=== PATIENT | male | born 1950 | race African-American/Black ===

== ENCOUNTER 2025-05-05 06:58 | Emergency (ER) | payer OTHER ==
[~2025-05-05] VITALS: Ht 182.9 cm; Wt 88.0 kg
[2025-05-05 07:05] VITALS: O2SAT 98
[2025-05-05 08:19] LABS: HEMATOCRIT. 46.5 % (42.0-52.0); HEMOGLOBIN. 15.2 g/dL (14.0-18.0); MEAN PLATELET VOLUME 9.4 fl (7.4-10.4); PLATELET 401 x1000/uL (130-400); RED BLOOD CELL COUNT 4.51 mill/uL (4.7-6.1); RED CELL DISTRIBUTION WIDTH 13.4 % (11.6-14.6)
[2025-05-05 08:22] LABS: CREATININE 1.0 mg/dL (0.6-1.3); UREA NITROGEN BLOOD 12 mg/dL (9-23)
[2025-05-05 08:23] LABS: PROTEIN TOTAL 7.5 g/dL (6.0-8.3)
[2025-05-05 08:24] LABS: ASPARTATE AMINOTRANSFERASE 35 IU/L (<34); BILIRUBIN TOTAL 1.3 mg/dL (0.1-1.0)
[2025-05-05] MEDS: SODIUM CHLORIDE 0.9% 1,000 ML IV ONE ×2 (08:53→10:47)
[2025-05-05] MEDS: PIPERACILLIN/TAZO 3.375G/50ML 50 ML IV ONE (08:53)
[2025-05-05 09:24] LABS: INR 1.5
[2025-05-05 09:33] LABS: BAND% 6.0 % (1.0-6.0); LYMPHOCYTES % MANUAL 3.0 % (20.0-50.0); MONOCYTES % MANUAL 7.0 % (2.0-8.0); NEUTROPHILS % MANUAL 84.0 % (45.0-75.0); PLATELET ESTIMATE SLIGHTLY INCREASED
[2025-05-05] MEDS: VANCOMYCIN 1G PREMIX 200 ML IV ONE (09:43)
[2025-05-05] MEDS: KETOROLAC 15MG/ML VIAL IV ONE (10:04)
[2025-05-05] MEDS: MORPHINE SULFATE 4 MG/ML INJ (FOR IV/IM USE) IV ONE (10:04)
[2025-05-05 11:45] LABS: CLARITY URINE CLOUDY (CLEAR); COLOR URINE DARK YELLOW (YELLOW); GLUCOSE URINE NEGATIVE (NEGATIVE); KETONES URINE TRACE (NEGATIVE); LEUKOCYTE ESTERASE URINE TRACE (NEGATIVE); NITRITE URINE NEGATIVE (NEGATIVE); OCCULT BLOOD URINE 2+ (NEGATIVE); PH URINE 5.5 (4.5-8.0); PROTEIN URINE 1+ (NEGATIVE); SPECIFIC GRAVITY URINE 1.035 (1.005-1.030); UROBILINOGEN URINE 1.0 E.U./dL (0.2-1.0)
[2025-05-05 12:09] VITALS: BP 98/66; PULSE 97; RESP 16; TEMP 36.9; O2SAT 98
[2025-05-05 12:37] LABS: AMORPHOUS SEDIMENT URINE 1+ /lpf
[2025-05-05 12:38] LABS: SQUAMOUS EPITHELIAL CELL URINE RARE /lpf (RARE/1+)
[2025-05-05 12:39] LABS: BACTERIA URINE 2+; MUCUS URINE TRACE /lpf (NONE/TRACE)
[2025-05-05] MEDS ORDERED: IOHEXOL-300 100 ML BOTTLE ONE ×2 (12:47→23:18)
== END 2025-05-05 12:23 | disposition short-term general hospital (02) ==
LOC: ER 07:55 → CMPBEDREQ 12:36
DX: A41.9 Sepsis, unspecified organism (principal); R65.21 Severe sepsis with septic shock; L02.31 Cutaneous abscess of buttock; I10 Essential (primary) hypertension
CPT/HCPCS: 80053; 81003; 83605; 85025; 85610; 87040; 87086; 36415; 84145; 71045; 74177; 93005; 96367; 96361; 96365; 96375; 99291; Q9967; J1885; J2543; J3373; J2270; J7030; Z7610 ×2; A4606